=== PATIENT | female | born 1960 | race Caucasian/White ===

== ENCOUNTER → 2020-03-04 | Outpatient (CLI) | payer BC ==
[~2020-03-04] MED LIST: DIATRIZOATE MEGL/DIATRIZOA SOD 30 ML BTL PO ONE; IOPAMIDOL 370 MG/ML 200 ML INFUS..BTL INJ ONE; SODIUM CHLORIDE 0.9% 50ML 50 ML ONE
[2020-03-04 15:13] LABS: BLOOD UREA NITROGEN 8 mg/dL (7-26); BUN/CREATININE RATIO 11 (6-25); CREATININE, SERUM 0.72 mg/dL (0.57-1.11); EST GLOMERULAR FILTRATION RATE > 60 ML/MIN (60-)
== END ==
LOC: CT 14:32
PROVIDERS: ATTEND Family Medicine
DX: R10.31 Right lower quadrant pain (principal)
CPT/HCPCS: 36415; 74177; 82565; 84520; Q9967

== ENCOUNTER 2021-10-24 12:00 | Outpatient (RCR) | payer OTHER | END 2021-10-26 | LOC: OT 12:00 | PROVIDERS: ATTEND Orthopaedic Surgery | DX: S62.361A Nondisplaced fracture of neck of second metacarpal bone, left hand, initial encounter for closed fracture (principal); S62.363A Nondisplaced fracture of neck of third metacarpal bone, left hand, initial encounter for closed fracture ==

== ENCOUNTER 2021-11-24 15:43 | Outpatient (RCR) | payer OTHER | END 2021-11-26 | LOC: OT 15:43 | PROVIDERS: ATTEND Orthopaedic Surgery | DX: S62.361A Nondisplaced fracture of neck of second metacarpal bone, left hand, initial encounter for closed fracture (principal); S62.363A Nondisplaced fracture of neck of third metacarpal bone, left hand, initial encounter for closed fracture ==

== ENCOUNTER 2021-12-02 15:50 | Outpatient (RCR) | payer OTHER | END 2021-12-26 | LOC: OT 15:50 | PROVIDERS: ATTEND Orthopaedic Surgery | DX: S62.361A Nondisplaced fracture of neck of second metacarpal bone, left hand, initial encounter for closed fracture (principal); S62.363A Nondisplaced fracture of neck of third metacarpal bone, left hand, initial encounter for closed fracture ==